=== PATIENT | male | born 1970 | race Two or more races ===

== ENCOUNTER 2018-10-31 17:23 | Emergency (ER) | payer OTHER ==
[2018-10-31] MEDS: FLUORESCEIN STRIP LEFT EYE (19:45)
[2018-10-31] MEDS: TETRACAINE 0.5% 4 ML OPH OP (19:45)
== END 2018-10-31 19:53 | disposition home or self-care (01) ==
LOC: FTE 17:23
DX: T15.01XA Foreign body in cornea, right eye, initial encounter (principal); X58.XXXA Exposure to other specified factors, initial encounter; Y92.9 Unspecified place or not applicable
CPT/HCPCS: 65220; 99283-25